=== PATIENT | male | born 1985 | race Caucasian/White ===

== ENCOUNTER 2020-08-10 21:31 | Observation (INO) ==
[2020-08-10] MEDS ORDERED: Ondansetron 4 mg VIAL 2 MG/ML 2 ml VIAL IV PRN (23:19)
[2020-08-10] MEDS ORDERED: KCL 20 MEQ/100 ML IVPREMIX 20 MEQ/100 ML BAG IV ONE (23:29)
[2020-08-10] MEDS ORDERED: Lactated Ringers 1000 ml BAG 1,000 ML IV SCH (23:45)
[2020-08-10] MEDS ORDERED: Zosyn per Pharmacy NOTE FOLLOW UP SCH (23:45)
[2020-08-11] MEDS ORDERED: ZOSYN 3.375 GM x ONE DOSE over 30 miuntes IV (00:36)
[2020-08-11] MEDS: NS 0.9% 1000 ml BAG 1,000 ML IV SCH ×3 (01:12→22:11)
[2020-08-11 01:40] LABS: EGFR African American 124.9 (>60); EGFR Non-African American 103.2 (>60)
[2020-08-11] MEDS: ZOSYN 3.375 GM Q8H per EXTENDED INFUSION IV SCH ×3 (04:59→22:11)
[2020-08-11 05:57] LABS: ABS Lymphocytes 1.4 10^3/ul (1.0-4.8); ABS Monocytes 1.2 10^3/ul (0-0.8); ABS Neutrophils 12.6 10^3/ul (1.5-7.7); Eosinophil % 0.1 %; Hematocrit 39 % (42-52); Hemoglobin 13.3 g/dL (14.0-18.0); Lymphocyte % 8.9 %; Mean Corpuscular HGB Conc 34 g/dL (31-36); Mean Corpuscular Hemoglobin 29 pg (27-31); Mean Corpuscular Volume 85 fL (80-94); Mean Platelet Volume 7.7 fL (7.4-10.4); Platelet Count 266 10^3/uL (150-450); Red Blood Count 4.57 10^6 /uL (4.18-5.48); Red Cell Distribution Width 13 % (10-15); White Blood Count 15.2 10^3/uL (3.5-10.8)
[2020-08-11 06:07] LABS: INR 1.16 (0.82-1.09)
[2020-08-11 06:20] LABS: Albumin/Globulin Ratio 1.7 (1-3); Calcium 9.4 mg/dL (8.6-10.3); EGFR African American 133.9 (>60); EGFR Non-African American 110.7 (>60); Globulin 2.4 g/dL (2-4); Potassium 4.1 mmol/L (3.5-5.0); Total Bilirubin 1.2 mg/dL (0.2-1.0); Total Protein 6.4 g/dL (6.4-8.9)
[2020-08-11] MEDS ORDERED: Acetaminophen IV 1 GM/100ML 100 ML ONE (19:03)
[2020-08-11] MEDS ORDERED: Rocuronium 50 mg VIAL 10 mg/ml 5 ml VIAL (50 mg) ONE ×2 (19:21→20:43)
[2020-08-11] MEDS ORDERED: Propofol 10 MG/ML 20 ML BTL ONE (19:21)
[2020-08-11] MEDS ORDERED: fentaNYL 250 mcg/5 ml 50 MCG/ML 5 ml VIAL (250 MCG) ONE (19:21)
[2020-08-11] MEDS ORDERED: Midazolam 2 mg/2 ml VIAL 1 mg/ml 2 ml VIAL (2 mg) ONE (19:21)
[2020-08-11] MEDS ORDERED: Bupivacaine 0.25% SDV 30 ML ONE (19:23)
[2020-08-11] MEDS ORDERED: HYDROmorphone 1 MG/1 ML SYRINGE ONE (19:52)
[2020-08-11] MEDS ORDERED: fentaNYL 100 mcg/2 ml 50 MCG/ML VIAL IV PRN (20:24)
[2020-08-11] MEDS ORDERED: Naloxone 0.4 mg VIAL 0.4 mg/ml 1 ml VIAL IV PRN (20:24)
[2020-08-11] MEDS ORDERED: Ondansetron 4 mg VIAL 2 MG/ML 2 ml VIAL IV PRN (20:24)
[2020-08-11] MEDS ORDERED: HYDROmorphone 1 MG/1 ML SYRINGE IV PRN (20:24)
[2020-08-11] MEDS ORDERED: Ondansetron ODT 4 mg TAB 4 MG TAB SL PRN (22:01)
[2020-08-11] MEDS ORDERED: HYDROcodone/ACETAMIN 5/325 mg TAB PO PRN (22:01)
[2020-08-12 00:10] VITALS: BP 112/75
== END 2020-08-12 00:15 | disposition home or self-care (01) ==
LOC: ED 21:31 → SSU 21:31
PROVIDERS: ADMIT Internal Medicine; ATTEND Surgery